=== PATIENT | female | born 1980 | race Caucasian/White ===

== ENCOUNTER → 2017-08-22 | Outpatient (CLI) | payer MEDICAID ==
--- NOTE | 2017-08-22 09:31 | Diagnostic Imaging Report ---
PROCEDURE: MRI left upper extremity without contrast. TECHNIQUE: Multiplanar, multisequence MR imaging of the left shoulder was performed without contrast. COMPARISON: None available. INDICATION: Left shoulder pain. Decreased range of motion. FINDINGS: Rotator cuff: No rotator cuff tear. Mild tendinopathy of the supraspinatus and subscapularis. No rotator cuff muscle atrophy or denervation edema. Glenoid labrum: By non-arthrogram imaging, the glenoid labrum appears intact. No para-labral cyst. Long head of biceps: Long head of biceps is normally positioned within the bicipital groove. The intracapsular segment is intact. Bones and cartilage: Humeral head is normal in morphology without fracture or focal osseous lesion. No glenohumeral chondromalacia. The acromioclavicular joint is normal in alignment without significant degenerative change. Soft tissues: No glenohumeral joint effusion. No MRI findings to suggest adhesive capsulitis. No fluid or inflammatory like signal within the subacromial/subdeltoid space to indicate bursitis. IMPRESSION: 1. No rotator cuff tear. Mild tendinopathy of the supraspinatus and subscapularis. 2. Long head of biceps is normal. 3. No displaced labral tear or paralabral cyst. Dictated by: Dictated on workstation # [id number]
== END ==
LOC: RAD 08:15
PROVIDERS: ATTEND Nurse Practitioner Family
DX: M67.814 Other specified disorders of tendon, left shoulder (principal)
CPT/HCPCS: 73221

== ENCOUNTER 2017-12-31 21:29 | Emergency (ER) | payer MEDICAID ==
[~2017-12-31] VITALS: Ht 175.3 cm; Wt 72.6 kg
--- OUTSIDE RECORDS SUMMARY | 2017-12-31 21:34 | XMS REPORT ---
Author Author MYA MORATAYA Organization [facility] Address [address] [place] [address] Care Team Providers Care Mentally Retarded Teacher Name Role Phone MYA MORATAYA Unavailable PROBLEMS Unknown Problems ALLERGIES Substance Reaction Event Type Date Status Penicillin V Potassium Unknown Drug Allergy Jun, Active ENCOUNTERS Encounter Location Date Diagnosis [facility] [address] [facility] [id number] [address] September, Strep pharyngitis J02.0 and Sore throat J02.9 [facility] [address] [id number], [place] [address] Jun, Seasonal allergic rhinitis, unspecified trigger J30.2 IMMUNIZATIONS Vaccine Route Administration Date Status DEXAMETHASONE 4MG/ML (PER 1 MG) IM Intramuscular Jul 08, 2017 Administered DEPO MEDROL 40 MG/ML IM Intramuscular Jul 08, 2017 Administered SOCIAL HISTORY Never Assessed REASON FOR VISIT cough, chest congestion. also has a headache. been sick for 2 weeks. rashaad , pt also requestiong something for her nerves. explained to pt that we can get her an establish care appt. pt verbalized understanding. PLAN OF CARE Activity Details Follow Up prn Reason: VITAL SIGNS Height 69 in 2017-07-08 Weight 164.0 lbs 2017-07-08 Temperature 98.5 degrees Fahrenheit 2017-07-08 Heart Rate 78 bpm 2017-07-08 Respiratory Rate 18 2017-07-08 BMI 24.22 kg/m2 2017-07-08 Blood pressure systolic 118 mmHg 2017-07-08 Blood pressure diastolic 68 mmHg 2017-07-08 MEDICATIONS Medication Instructions Dosage Frequency Start Date End Date Duration Status Ibuprofen 200 MG Orally Three times a day 1 tablet with food or milk as needed 8h Active Flonase 50 MCG/ACT Nasally Once a day 1 spray in each nostril 24h Jun, 30 day(s) Active Zyrtec Allergy 10 MG Orally Once a day 1 tablet 24h 23 Jun, 2017 Jul, 30 day(s) Active RESULTS No Results PROCEDURES Procedure Date Ordered Result Body Site DEPO MEDROL 40 MG/ML Jul 08, 2017 DEXAMETHASONE 4MG/ML (PER 1 MG) Jul 08, 2017 THER/PROPH/DIAG INJ, SC/IM Jul 08, 2017 INSTRUCTIONS MEDICATIONS ADMINISTERED No Known Medications
--- OUTSIDE RECORDS SUMMARY | 2017-12-31 21:34 | XMS REPORT ---
Author Author ARNOL BERNAL Organization [facility] Address [address] [place] [address] Care Team Providers Care Exhaust And Muffler Repairer Name Role Phone ARNOL BERNAL Unavailable PROBLEMS Unknown Problems ALLERGIES Substance Reaction Event Type Date Status Penicillin V Potassium Unknown Drug Allergy September, Active ENCOUNTERS Encounter Location Date Diagnosis [facility] [id number] [place] [id number] Dec, [facility] [id number] [place] [phone] September, Strep pharyngitis J02.0 and Sore throat J02.9 [facility] [id number] [place] [phone] Jun, Seasonal allergic rhinitis, unspecified trigger J30.2 IMMUNIZATIONS No Known Immunizations SOCIAL HISTORY Never Assessed REASON FOR VISIT sore throat, cough, bosy aches, fever. been sick for 5 days. sore throat started 2 days ago. kbullardrn, fever just started last noc...never actually took it.. and hasnt taken any tylenol et motrin PLAN OF CARE Activity Details Follow Up prn Reason: VITAL SIGNS Height 69 in 2017-09-26 Weight 171.8 lbs 2017-09-26 Temperature 98.0 degrees Fahrenheit 2017-09-26 Heart Rate 80 bpm 2017-09-26 Respiratory Rate 20 2017-09-26 BMI 25.37 kg/m2 2017-09-26 Blood pressure systolic 118 mmHg 2017-09-26 Blood pressure diastolic 70 mmHg 2017-09-26 MEDICATIONS Medication Instructions Dosage Frequency Start Date End Date Duration Status Flonase 50 MCG/ACT Nasally Once a day 1 spray in each nostril 24h Jun, 30 day(s) Active Clindamycin HCl 300 MG Orally every 6 hrs 1 capsule 6h September,September 10 days Active Ibuprofen 200 MG Orally Three times a day 1 tablet with food or milk as needed 8h Not-Taking Sudafed 30 MG Orally every 6 hrs 1 tablet as needed 6h Active RESULTS Name Result Date Reference Range STREP A (IN HOUSE) 2017-09-26 STREP A positive Control + Lot # [id number] Exp date 2019 10 10 PROCEDURES Procedure Date Ordered Result Body Site STREP A ASSAY W/OPTIC September 26, 2017 INSTRUCTIONS MEDICATIONS ADMINISTERED No Known Medications
[2017-12-31] MEDS ORDERED: KETOROLAC 30 MG/ML VIAL IVP STA (22:10)
[2017-12-31] MEDS ORDERED: diphenhydrAMINE 50 MG/ML INJ (BENADRYL) IV STA (22:10)
[2017-12-31] MEDS ORDERED: PROMETHAZINE INJ 25 MG/ML (PHENERGAN) AMP IVP STA (22:10)
[2017-12-31] MEDS ORDERED: NS IV 1000 ML 1,000 ML IV SCH (22:14)
--- NOTE | 2017-12-31 22:14 | ED Headache ---
General Chief Complaint: Head/Cervical Problems Stated Complaint: HEADACHE Nursing Triage Note: C/O HEADACHE STARTING 2 DAYS AGO BUT WORSE THIS EVENING (LAYING DOWN MAKES PAIN WORSE), SHARP STOMACH PAINS STARTING YESTERDAY WITH NAUSEA BUT NO VOMITING OR DIARRHEA. Nursing Sepsis Screen: No Definite Risk History of Present Illness Date Seen by Provider: Dec 31, 2017 Time Seen by Provider: 22:00 Initial Comments 37-year-old female presents for right occipital headache. She reports her symptoms have been present for approximately 2 days. She has tried Tylenol and ibuprofen with no relief. She usually is able to take Excedrin headache with improvement but it has not been effective. She's had no ibuprofen for the last 8 hours. Mild nausea and no vomiting. She has no photophobia or vision changes. She has not had a headache to this severity in the one year. She is currently living at [facility]. She sees Beatriz Salcedo APRN. Timing/Duration: 24 hours Severity/Quality: moderate Location: occipital Prior Headaches/Recent Trauma: occasional headaches Associated Symptoms: No confusion; fatigue; No facial pain, No fever/chills, No loss of consciousness; nausea/vomiting; No nasal congestion, No nasal drainage, No numbness in legs/feet, No rash, No seizures, No sinus infection, No stiff neck, No vision changes, No weakness Allergies and Home Medications Allergies Coded Allergies: No Known Drug Allergies (Unverified , 12/31/17) Patient Home Medication List Home Medication List Reviewed: Yes Review of Systems Constitutional: no symptoms reported, see HPI Gastrointestinal: see HPI; No constipation, No diarrhea, No loss of appetite; nausea; No vomiting Psychiatric/Neurological: See HPI, Headache All Other Systems Reviewed Negative Unless Noted: Yes Past Mczgaew-Cxlssj-Wlyixd Hx Past Med/Social Hx: Reviewed Nursing Past Med/Soc Hx Patient Social History Alcohol Use: Denies Use Recreational Drug Use: No Smoking Status: Current Everyday Smoker Recent Foreign Travel: No Contact w/Someone Who Travel: No Recent Infectious Disease Expo: No Recent Hopitalizations: No Seasonal Allergies Seasonal Allergies: Yes Past Medical History Surgeries: Yes Appendectomy, Section Respiratory: No Cardiac: No Neurological: Yes (HX MIGRAINE ONE YEAR AGO) Headaches /Migraines Last Menstrual Period: Dec 24, 2017 Sexually Transmitted Disease: No Genitourinary: No Gastrointestinal: Yes (MICROSCOPIC COLITIS) Musculoskeletal: No Endocrine: No HEENT: No Cancer: No Psychosocial: No Integumentary: Yes (ALOPECIA) Blood Disorders: No Physical Exam Vital Signs Vital Signs - First Documented 12/31/17 21:55 Temp 97.1 Pulse 81 Resp 17 B/P (MAP) 113/68 (83) O2 Delivery Room Air Capillary Refill : Less Than 3 Seconds Height, Weight, BMI Height: 5'9.00" Weight: 160lbs. oz. 72.995165it; BMI Method:Stated General Appearance: WD/WN, mild distress HEENT: PERRL/EOMI, normal ENT inspection, TMs normal, pharynx normal Neck: non-tender, full range of motion, supple, normal inspection Cardiovascular: normal peripheral pulses, regular rate, rhythm, no murmur Respiratory: chest non-tender, lungs clear, normal breath sounds Gastrointestinal: normal bowel sounds, non tender, soft Extremities: normal range of motion, non-tender, normal inspection, no calf tenderness, normal capillary refill Psychiatric: alert, oriented x 3 Crainal Nerves: normal hearing, normal speech, PERRL Coordination/Gait: normal finger to nose, normal gait, negative Romberg's sign Motor/Sensory: no motor deficit, no sensory deficit, no pronator drift Skin: normal color, warm/dry Lymphatic: no adenopathy Progress/Results/Core Measures Results/Orders My Orders Orders - JESSE MARTE Ketorolac Injection (Toradol Injection) (12/31/17 22:10) Promethazine Injection (Phenergan Injec (12/31/17 22:10) Diphenhydramine Injection (Benadryl Inje (12/31/17 22:10) Saline Lock/Iv-Start (12/31/17 22:14) Ns Iv 1000 Ml (Sodium Chloride 0.9%) (12/31/17 22:14) Ns (Ivpb) (Sodium Chloride 0.9% Ivpb Bag (12/31/17 22:18) Vital Signs/I&O 12/31/17 21:55 Temp 97.1 Pulse 81 Resp 17 B/P (MAP) 113/68 (83) O2 Delivery Room Air Blood Pressure Mean: 83 Progress Progress Note : Time: 22:00 Progress Note Initial evaluation completed, recommended IV fluids, normal saline 1 L. Toradol 30 mg IV, Phenergan 25 mg IV and Benadryl 25 mg IV. She reports having someone who can drive her home. Her son is with her at the present time but she will have someone come to get him. 2240 Patient reports symptoms have dulled since receiving medication. Feeling drowsy, room darkened and quiet for her to rest. Departure Impression Primary Impression: Migraine Qualified Codes: G43.019 - Migraine without aura, intractable, without status migrainosus Disposition: HOME, SELF-CARE Condition: Improved Departure-Patient Inst. Referrals: NO,LOCAL PHYSICIAN (PCP/Family) Primary Care Physician Patient Instructions: Migraine Headache (DC) Add. Discharge Instructions: Make sure to stay well hydrated, drinking one bottle of water every 2 hours while awake. Take Excedrin migraine at first onset of headache. If headaches persist, follow up with Beatriz Salcedo APRN for additional options on medication management. Return to emergency department for new, urgent health care needs. All discharge instructions reviewed with patient and/or family. Voiced understanding. Copy Copies To 1: BRANDIN CUI MD, AMY ARNP Dec 31, 2017 22:14
[2017-12-31] MEDS ORDERED: NS (IVPB) 0 ML ONE (22:18)
[2017-12-31 23:24] VITALS: BP 113/68
== END 2017-12-31 23:27 | disposition home or self-care (01) ==
LOC: EDUNIT# 21:29 → ER 21:30
DX: G43.909 Migraine, unspecified, not intractable, without status migrainosus (principal); F17.200 Nicotine dependence, unspecified, uncomplicated; Z90.49 Acquired absence of other specified parts of digestive tract; Z98.890 Other specified postprocedural states

== ENCOUNTER 2018-02-15 14:03 | Emergency (ER) | payer SELFPAY ==
[~2018-02-15] VITALS: Ht 175.3 cm; Wt 76.2 kg
--- OUTSIDE RECORDS SUMMARY | 2018-02-15 14:07 | XMS REPORT ---
Author Author PALMER BORREGO [facility] Address [address] [place] [address] Care Team Providers Care Supervisor Clam Bed Name Role Phone PALMER BORREGO Unavailable PROBLEMS Unknown Problems ALLERGIES No Information ENCOUNTERS Encounter Location Date Diagnosis [facility] [id number] [place] [phone] Dec, Dental examination Z01.20 [facility] [id number] [place] [phone] September, Strep pharyngitis J02.0 and Sore throat J02.9 [facility] [id number] [place] [phone] Jun, Seasonal allergic rhinitis, unspecified trigger J30.2 IMMUNIZATIONS No Known Immunizations SOCIAL HISTORY Never Assessed REASON FOR VISIT prophy PLAN OF CARE VITAL SIGNS MEDICATIONS Unknown Medications RESULTS No Results PROCEDURES Procedure Date Ordered Result Body Site Billing Notes on claim Jan 02, 2018 INSTRUCTIONS MEDICATIONS ADMINISTERED No Known Medications
[2018-02-15 14:59] LABS: BASOPHILS % (AUTO) 0 % (0-10); EOSINOPHILS # (AUTO) 0.2 10^3/uL (0.0-0.3); EOSINOPHILS % (AUTO) 4 % (0-10); HEMATOCRIT 35 % (35-52); HEMOGLOBIN 12.2 G/DL (11.5-16.0); LYMPHOCYTES # (AUTO) 1.4 X 10^3 (1.0-4.0); LYMPHOCYTES % (AUTO) 25 % (12-44); MEAN CORPUSCULAR HEMOGLOBIN 31 PG (25-34); MEAN CORPUSCULAR HGB CONC 35 G/DL (32-36); MEAN CORPUSCULAR VOLUME 90 FL (80-99); MEAN PLATELET VOLUME 10.7 FL (7.4-10.4); MONOCYTES # (AUTO) 0.5 X 10^3 (0.0-1.0); MONOCYTES % (AUTO) 9 % (0-12); NEUTROPHILS # (AUTO) 3.5 X 10^3 (1.8-7.8); NEUTROPHILS % (AUTO) 62 % (42-75); PLATELET COUNT 208 10^3/uL (130-400); RED BLOOD COUNT 3.89 10^6/uL (4.35-5.85); RED CELL DISTRIBUTION WIDTH 12.3 % (10.0-14.5); WHITE BLOOD COUNT 5.7 10^3/uL (4.3-11.0)
[2018-02-15] MEDS ORDERED: ONDANSETRON 4 MG/2 ML (SDV) Z0FRAN IVP ONE (15:00)
[2018-02-15] MEDS ORDERED: NS IV 1000 ML 1,000 ML IV SCH (15:00)
[2018-02-15 15:12] LABS: ALANINE AMINOTRANSFERASE 14 U/L (0-55); ALBUMIN 3.9 GM/DL (3.2-4.5); ALKALINE PHOSPHATASE 31 U/L (40-136); AMYLASE 45 U/L (25-125); BILIRUBIN,TOTAL 0.2 MG/DL (0.1-1.0); BUN/CREATININE RATIO 15; CALCIUM 8.6 MG/DL (8.5-10.1); CARBON DIOXIDE 21 MMOL/L (21-32); CHLORIDE 112 MMOL/L (98-107); CREATININE SERUM 0.68 MG/DL (0.60-1.30); GFR ESTIMATED > 60; GLUCOSE 101 MG/DL (70-105); LIPASE 17 U/L (8-78); POTASSIUM 3.8 MMOL/L (3.6-5.0); SODIUM 140 MMOL/L (135-145); TOTAL PROTEIN 6.7 GM/DL (6.4-8.2)
[2018-02-15] MEDS ORDERED: IOHEXOL 350 MG/ML 100 ML (OMNIPAQUE 350) VIAL IV ONE (15:45)
[2018-02-15] MEDS ORDERED: NS 250 ML (IVPB) BAG IV ONE (15:45)
--- NOTE | 2018-02-15 16:02 | ED Abdominal Pain ---
General Chief Complaint: Abdominal/GI Problems Stated Complaint: VOMITING Nursing Triage Note: ARRIVED VIA AMB WITHOUT DIFFICULTY. STATES SHE WAS SENT OVER FROM [facility] WITH LEFT ABD PAIN WITH N/V/D X4-5 DAYS. Sepsis Screen: No Definite Risk Source of Information: Patient Exam Limitations: No Limitations History of Present Illness Date Seen by Provider: Feb 15, 2018 Time Seen by Provider: 14:40 Initial Comments Patient is 37-year-old female who presents to the emergency room with complaints of left lower quadrant abdominal pain, nausea, vomiting, diarrhea for the past 4-5 days. She denies any recent fevers. Denies any urinary tract symptoms. Denies using anything navt-fld-ydjgwyt for treatment. Timing/Duration: 4-5 Days Severity/Quality: Moderate, Sharp Location: LLQ Radiation: No Radiation Associated Symptoms: Nausea/Vomiting Allergies and Home Medications Allergies Coded Allergies: No Known Drug Allergies (Unverified , 12/31/17) Home Medications Hydrocodone Bit/Acetaminophen 1 Tab Tab, 1 EACH PO Q4-6HR PRN for PAIN-MODERATE Prescribed by: KAYLEE MARTINEZ on 02/15/181647 Ondansetron 4 Mg Tab.rapdis, 4 MG SL Q4H PRN for NAUSEA/VOMITING-1ST LINE Prescribed by: KAYLEE MARTINEZ on 02/15/18 1648 Patient Home Medication List Home Medication List Reviewed: Yes Review of Systems Review of Systems Constitutional: see HPI; No chills, No fever, No malaise Gastrointestinal: See HPI, Abdominal Pain, Diarrhea, Nausea, Vomiting All Other Systems Reviewed Negative Unless Noted: Yes Past Jjbcfxf-Irrrjl-Pzomxm Hx Past Med/Social Hx: Reviewed Nursing Past Med/Soc Hx Patient Social History Recent Foreign Travel: No Contact w/Someone Who Travel: No Recent Infectious Disease Expo: No Recent Hopitalizations: No Seasonal Allergies Seasonal Allergies: Yes Past Medical History Surgeries: Yes Appendectomy, Section Respiratory: No Cardiac: No Neurological: Yes (HX MIGRAINE ONE YEAR AGO) Headaches /Migraines Last Menstrual Period: Jan 25, 2018 Sexually Transmitted Disease: No Genitourinary: No Gastrointestinal: Yes (MICROSCOPIC COLITIS) Musculoskeletal: No Endocrine: No HEENT: No Cancer: No Psychosocial: No Integumentary: Yes (ALOPECIA) Blood Disorders: No Family Medical History Reviewed Nursing Family Hx Physical Exam Vital Signs Vital Signs - First Documented 02/15/18 14:20 Temp 98.3 Pulse 81 Resp 16 B/P (MAP) 113/68 (83) Pulse Ox 96 O2 Delivery Room Air Capillary Refill : Less Than 3 Seconds Height/Weight/BMI Height: 5'9.00" Weight: 168lbs. oz. 76.913109uv; BMI Method:Stated General Appearance: WD/WN, no apparent distress Respiratory: chest non-tender, lungs clear, normal breath sounds, no respiratory distress, no accessory muscle use Cardiovascular: normal peripheral pulses, regular rate, rhythm, no edema, no gallop, no JVD, no murmur Gastrointestinal: normal bowel sounds, soft, no organomegaly, no pulsatile mass , tenderness (left lower quadrant tenderness.) Neurologic/Psychiatric: alert, normal mood/affect, oriented x 3 Skin: normal color, warm/dry Progress/Results/Core Measures Results/Orders Lab Results Laboratory Tests Test 02/15/18 14:30 02/15/18 16:50 Range/Units White Blood Count 5.7 4.3-11.0 10^3/uL Red Blood Count 3.89 L 4.35-5.85 10^6/uL Hemoglobin 12.2 11.5-16.0 G/DL Hematocrit 35 35-52 % Mean Corpuscular Volume 90 80-99 FL Mean Corpuscular Hemoglobin 31 25-34 PG Mean Corpuscular Hemoglobin Concent 35 32-36 G/DL Red Cell Distribution Width 12.3 10.0-14.5 % Platelet Count 208 130-400 10^3/uL Mean Platelet Volume 10.7 H 7.4-10.4 FL Neutrophils (%) (Auto) 62 42-75 % Lymphocytes (%) (Auto) 25 12-44 % Monocytes (%) (Auto) 9 0-12 % Eosinophils (%) (Auto) 4 0-10 % Basophils (%) (Auto) 0 0-10 % Neutrophils # (Auto) 3.5 1.8-7.8 X 10^3 Lymphocytes # (Auto) 1.4 1.0-4.0 X 10^3 Monocytes # (Auto) 0.5 0.0-1.0 X 10^3 Eosinophils # (Auto) 0.2 0.0-0.3 10^3/uL Basophils # (Auto) 0.0 0.0-0.1 10^3/uL Sodium Level 140 135-145 MMOL/L Potassium Level 3.8 3.6-5.0 MMOL/L Chloride Level 112 H 98-107 MMOL/L Carbon Dioxide Level 21 21-32 MMOL/L Anion Gap 7 5-14 MMOL/L Blood Urea Nitrogen 10 7-18 MG/DL Creatinine 0.68 0.60-1.30 MG/DL Estimat Glomerular Filtration Rate > 60 BUN/Creatinine Ratio 15 Glucose Level 101 70-105 MG/DL Calcium Level 8.6 8.5-10.1 MG/DL Corrected Calcium 8.7 8.5-10.1 MG/DL Total Bilirubin 0.2 0.1-1.0 MG/DL Aspartate Amino Transf (AST/SGOT) 14 5-34 U/L Alanine Aminotransferase (ALT/SGPT) 14 0-55 U/L Alkaline Phosphatase 31 L 40-136 U/L Total Protein 6.7 6.4-8.2 GM/DL Albumin 3.9 3.2-4.5 GM/DL Amylase Level 45 25-125 U/L Lipase 17 8-78 U/L Serum Test, Qualitative NEGATIVE NEGATIVE Urine Color YELLOW Urine Clarity CLEAR Urine pH 6.5 5-9 Urine Specific Arena 1.010 L 1.016-1.022 Urine Protein 1+ H NEGATIVE Urine Glucose (UA) NEGATIVE NEGATIVE Urine Ketones NEGATIVE NEGATIVE Urine Nitrite NEGATIVE NEGATIVE Urine Bilirubin NEGATIVE NEGATIVE Urine Urobilinogen NORMAL NORMAL MG/DL Urine Leukocyte Esterase NEGATIVE NEGATIVE Urine RBC (Auto) 2+ H NEGATIVE Urine RBC 0-2 /HPF Urine WBC 0-2 /HPF Urine Squamous Epithelial Cells 2-5 /HPF Urine Crystals NONE /LPF Urine Bacteria NEGATIVE /HPF Urine Casts NONE /LPF Urine Mucus NEGATIVE /LPF Urine Culture Indicated NO My Orders Orders - KAYLEE MARTINEZ Comprehensive Metabolic Panel (02/15/18 14:51) Lipase (02/15/18 14:51) Amylase (02/15/18 14:51) Ua Culture If Indicated (02/15/18 14:51) Hcg,Qualitative Serum (02/15/18 14:51) Saline Lock/Iv-Start (02/15/18 14:51) Cbc With Automated Diff (02/15/18 14:51) Ondansetron Injection (Zofran Injectio (02/15/18 15:00) Ns Iv 1000 Ml (Sodium Chloride 0.9%) (02/15/18 15:00) Ct Abdomen/Pelvis W (02/15/18 15:06) Iohexol Injection (Omnipaque 350 Mg/Ml 1 (02/15/18 15:45) Ns (Ivpb) (Sodium Chloride 0.9%) (02/15/18 15:45) Ketorolac Injection (Toradol Injection) (02/15/18 16:15) Medications Given in ED Vital Signs/I&O 02/15/18 02/15/18 14:20 17:36 Temp 98.3 Pulse 81 71 Resp 16 16 B/P (MAP) 113/68 (83) 104/68 Pulse Ox 96 98 O2 Delivery Room Air Room Air Blood Pressure Mean: 83 Progress Progress Note : Time: 16:17 Progress Note Patient's nausea has resolved. I have informed her of CT findings. She agrees with plans for discharge. Return precautions were given. Diagnostic Imaging Diagonstic Imaging: CT Plain Films/CT/US/NM/MRI: abdomen, pelvis Comments NAME: AARON SALAS [facility] REC#: [id number] PT STATUS: REG ER : 1980 PHYSICIAN: KAYLEE MARTINEZ ADMIT DATE: 02/15/18/ER Draft Date of Exam:02/15/18 CT ABDOMEN/PELVIS W PROCEDURE: CT abdomen and pelvis with contrast. TECHNIQUE: Multiple contiguous axial images were obtained through the abdomen and pelvis after administration of intravenous contrast. INDICATION: Nausea, vomiting and left lower quadrant pain. FINDINGS: There is a left adnexal cyst, presumed ovarian, measuring 3.9 x 2.3 cm, just deep to the left lower quadrant abdominal wall. The uterus and right adnexa appear unremarkable. The urinary bladder on the delayed images appear normal. There is some stool and fluid as well as a small amount of air throughout the lumen of the colon which may reflect a hypermobile or diarrheal state. No evidence for small or large bowel obstruction. There is no focal small or large bowel wall thickening and no perienteric or pericolonic edema. There is no inflammatory process. The unobstructed kidneys appear normal. The gallbladder, adrenals, pancreas and spleen are unremarkable. The liver and gallbladder are felt unremarkable. Heterogeneity of the livers density during the early arterial dynamic phase are felt owing to reflect incidental incomplete and inhomogenous perfusion. This is homogenous and normal on the delayed images and this is felt incidental. IMPRESSION: A left ovarian cyst shows no obvious complexity. Density dimensions above. The fluid and air throughout the length of the colon may reflect a hypermobile or diarrheal state. No evidence for small or large bowel obstruction and no focal inflammatory process. No mass or obstructive features. No acute appearing abnormality. Dictated on workstation # [id number] Dict: 02/15/18 1601 Trans: 02/15/18 1608 [facility] [id number] Interpreted by: ANNAMARIE MAURER Electronically signed by: Reviewed: Reviewed by Me Departure Impression Primary Impression: Nausea vomiting and diarrhea Additional Impression: Left ovarian cyst Disposition: HOME, SELF-CARE Condition: Stable/Unchanged Departure-Patient Inst. Decision time for Depature: 16:46 Referrals: NO,LOCAL PHYSICIAN (PCP) Primary Care Physician Patient Instructions: Diarrhea and Traveler's Diarrhea, Child (DC), LOCAL PHYSICIAN LIST, Nausea and Vomiting, Adult (DC) Add. Discharge Instructions: Take medications as directed. Drink plenty of clear liquids to stay hydrated like water. You may use bmim-txm-clinztb antidiarrheals as directed by the bottle. Follow-up with your primary care provider within 1 week for recheck. Return back to the emergency room for any worsening symptoms or concerns as needed. All discharge instructions reviewed with patient and/or family. Voiced understanding. Scripts Ondansetron (Zofran Odt) 4 Mg Tab.rapdis 4 MG SL Q4H PRN for NAUSEA/VOMITING-1ST LINE, #14 TAB Prov: KAYLEE MARTINEZ 02/15/18 Hydrocodone Bit/Acetaminophen (Hydrocodone/Acetaminophen 5/325mg Tablet) 1 Tab Tab 1 EACH PO Q4-6HR PRN for PAIN-MODERATE MDD 10, #14 TAB Prov: KAYLEE MARTINEZ 02/15/18 KAYLEE MARTINEZ Feb 15, 2018 16:02
--- NOTE | 2018-02-15 16:09 | Diagnostic Imaging Report ---
PROCEDURE: CT abdomen and pelvis with contrast. TECHNIQUE: Multiple contiguous axial images were obtained through the abdomen and pelvis after administration of intravenous contrast. INDICATION: Nausea, vomiting and left lower quadrant pain. FINDINGS: There is a left adnexal cyst, presumed ovarian, measuring 3.9 x 2.3 cm, just deep to the left lower quadrant abdominal wall. The uterus and right adnexa appear unremarkable. The urinary bladder on the delayed images appear normal. There is some stool and fluid as well as a small amount of air throughout the lumen of the colon which may reflect a hypermobile or diarrheal state. No evidence for small or large bowel obstruction. There is no focal small or large bowel wall thickening and no perienteric or pericolonic edema. There is no inflammatory process. The unobstructed kidneys appear normal. The gallbladder, adrenals, pancreas and spleen are unremarkable. The liver and gallbladder are felt unremarkable. Heterogeneity of the livers density during the early arterial dynamic phase are felt owing to reflect incidental incomplete and inhomogenous perfusion. This is homogenous and normal on the delayed images and this is felt incidental. IMPRESSION: A left ovarian cyst shows no obvious complexity. Density dimensions above. The fluid and air throughout the length of the colon may reflect a hypermobile or diarrheal state. No evidence for small or large bowel obstruction and no focal inflammatory process. No mass or obstructive features. No acute appearing abnormality. Dictated by: Dictated on workstation # [id number]
[2018-02-15] MEDS ORDERED: KETOROLAC 30 MG/ML VIAL IVP ONE (16:15)
[2018-02-15] MEDS ORDERED: ACHD5005 PO (16:48)
[2018-02-15] MEDS ORDERED: ONDA4TAB8 SL (16:48)
[2018-02-15 17:04] LABS: BILIRUBIN,URINE NEGATIVE (NEGATIVE); CLARITY,URINE CLEAR; COLOR,URINE YELLOW; GLUCOSE, URINE (UA) NEGATIVE (NEGATIVE); KETONES,URINE NEGATIVE (NEGATIVE); LEUKOCYTE ESTERASE ,URINE NEGATIVE (NEGATIVE); NITRITE,URINE NEGATIVE (NEGATIVE); PH,URINE 6.5 (5-9); PROTEIN,URINE 1+ (NEGATIVE); UROBILINOGEN,URINE NORMAL (NORMAL)
[2018-02-15 17:21] LABS: BACTERIA,URINE NEGATIVE /HPF; RBC,URINE 0-2 /HPF; WBC,URINE 0-2 /HPF
[2018-02-15 17:36] VITALS: BP 104/68
== END 2018-02-15 17:36 | disposition home or self-care (01) ==
LOC: EDUNIT# 14:03 → ER 14:04
DX: N83.202 Unspecified ovarian cyst, left side (principal); R19.7 Diarrhea, unspecified; G43.909 Migraine, unspecified, not intractable, without status migrainosus; Z87.19 Personal history of other diseases of the digestive system; Z90.89 Acquired absence of other organs; Z98.890 Other specified postprocedural states
CPT/HCPCS: 36415; 74177; 80053; 81000; 82150; 83690; 84703; 85025

== ENCOUNTER 2018-03-12 18:22 | Emergency (ER) | payer MEDICAID, OTHER ==
[~2018-03-12] VITALS: Ht 175.3 cm; Wt 77.1 kg
[~2018-03-12 18:22] MED LIST: ACHD5005 PO; ONDA4TAB8 SL
[2018-03-12] MEDS ORDERED: fluCOnazole (DIFLUCAN) 100 MG TAB PO ONE (19:00)
[2018-03-12] MEDS ORDERED: metroNIDAZOLE 500 MG (FLAGYL) TAB PO ONE (19:00)
[2018-03-12] MEDS ORDERED: MICO1KIT13 VG (19:02)
[2018-03-12] MEDS ORDERED: FLUC200T PO (19:02)
--- NOTE | 2018-03-12 19:02 | ED GU-Female ---
General Chief Complaint: -Female Stated Complaint: YEAST INFECTION Nursing Triage Note: PATIENT STATES THAT SHE HAS HAD A YEAST INFECTION X1 WEEK. C/O ITCHING AND BURNING. STATES HER SKIN IS RAW. Nursing Sepsis Screen: No Definite Risk Source: patient History of Present Illness Date Seen by Provider: Mar 12, 2018 Time Seen by Provider: 18:32 Initial Comments PT ARRIVES VIA POV FROM HOME C/O PAIN, ITCHING, BURNING AND SORES TO GENITAL AREA X 1 WEEK STATES SHE THINKS SHE HAS HAD A YEAST INFECTION HAS HAD A VAGINAL DISCHARGE WELL HAS NOT TRIED ANY OVER THE COUNTER MEDICATIONS HAS BURNING ON URINATION, BUT IS MOSTLY EXTERNAL NO ABDOMINAL PAIN NO FEVER STATES SHE HAS ALWAYS HAD PERIANAL RASH/IRRITATION/AND OCCASIONALLY "RAW" SKIN IN THE AREA, AND USUALLY USES A STEROID CREAM FOR THAT, BUT HAS NOT USED IT RECENTLY NO RECENT ANTIBIOTIC OR ORAL STEROID USE. HAS VAGINAL/EXTERNAL GENITAL PAIN WITH INTERCOURSE LMP --SPOTTING THE LAST WEEK PCP: TERESO GARCIA AT [facility] Allergies and Home Medications Allergies Coded Allergies: No Known Drug Allergies (Unverified , 12/31/17) Home Medications Fluconazole 200 Mg Tablet, 200 MG PO DAILY Prescribed by: JAZZMINE BEAL on 03/12/181901 Hydrocodone Bit/Acetaminophen 1 Tab Tab, 1 EACH PO Q4-6HR PRN for PAIN-MODERATE Prescribed by: KYALEE MARTINEZ on 02/15/181647 Miconazole/Skin Cleanser No.17 1 Each Kit, 1 EACH VG UD Prescribed by: JAZZMINE BEAL on 03/12/181901 Ondansetron 4 Mg Tab.rapdis, 4 MG SL Q4H PRN for NAUSEA/VOMITING-1ST LINE Prescribed by: KAYLEE MARTINEZ on 02/15/181647 Patient Home Medication List Home Medication List Reviewed: Yes Review of Systems Review of Systems Constitutional: no symptoms reported Gastrointestinal: no symptoms reported Genitourinary: see HPI : No LMP: Mar 09, 2018 Musculoskeletal: no symptoms reported Skin: see HPI Endocrine: No Symptoms Reported Past Fctfujk-Pxirll-Hchacx Hx Patient Social History Alcohol Use: Denies Use Recreational Drug Use: No Smoking Status: Current Everyday Smoker Type Used: Cigarettes 2nd Hand Smoke Exposure: Yes Recent Foreign Travel: No Contact w/Someone Who Travel: No Recent Infectious Disease Expo: No Recent Hopitalizations: No Physical Abuse: No Sexual Abuse: No Seasonal Allergies Seasonal Allergies: Yes Past Medical History Surgeries: Yes Appendectomy, Section Respiratory: No Cardiac: No Neurological: Yes (HX MIGRAINE ONE YEAR AGO) Headaches /Migraines : No Female Reproductive Disorders: Denies Sexually Transmitted Disease: No Genitourinary: No Gastrointestinal: Yes (MICROSCOPIC COLITIS) Musculoskeletal: No Endocrine: No HEENT: No Cancer: No Psychosocial: No Integumentary: Yes (ALOPECIA; PERIANAL DERMATITIS) Blood Disorders: No Physical Exam Vital Signs Vital Signs - First Documented 03/12/18 18:25 Temp 98.1 Pulse 96 Resp 20 B/P (MAP) 121/76 (91) Pulse Ox 98 Capillary Refill : Less Than 3 Seconds Height, Weight, BMI Height: 5'9.00" Weight: 170lbs. 0oz. 77.387740ai; BMI Method:Stated General Appearance: WD/WN, no apparent distress, other (WEARING A WIG) Respiratory: normal breath sounds Gastrointestinal: non tender, soft Genital/Rectal: other (EXTERNAL GENITAL AREA WITH MILD ERYTHEMA, SOME SLIGHTLY DENUDED AREAS, BUT NO BLANCA ULCERS. PERIANAL WITH ACUTE AND CHRONIC INFLAMMATORY SKIN CHANGES WITH A FEW AREAS OF DENUDED SKIN WITHOUT BLANCA ULCERATIONS. NO OTHER LESIONS. ) Pelvic: normal adnexa, no cerv. motion tender, no masses, discharge (MODERATE AMOUNT OF THICK, WHITE ADHERENT DISCHARGE, VAGINAL MUCOSA MILDY INFLAMED. ); No tender w/ cervical motion, No tender adnexa, No tender uterus, No vaginal bleeding Extremities: normal inspection Neurologic/Psychiatric: colors custodian II-XII nml as tested, no motor/sensory deficits, alert, normal mood/affect, oriented x 3 Skin: normal color, warm/dry Progress/Results/Core Measures Suspected Sepsis Recent Fever Within 48 Hours: No Infection Criteria Present: None New/Unexplained Altered Menta: No Sepsis Screen: No Definite Risk SIRS Temperature:98.1 Pulse: 96 Respiratory Rate: 20 Blood Pressure 121 /76 Mean: 91 Results/Orders Lab Results Laboratory Tests Test 03/12/18 18:50 03/12/18 19:25 Range/Units Urine Color YELLOW Urine Clarity CLEAR Urine pH 5 5-9 Urine Specific Hamler 1.020 1.016-1.022 Urine Protein NEGATIVE NEGATIVE Urine Glucose (UA) NEGATIVE NEGATIVE Urine Ketones NEGATIVE NEGATIVE Urine Nitrite NEGATIVE NEGATIVE Urine Bilirubin NEGATIVE NEGATIVE Urine Urobilinogen NORMAL NORMAL MG/DL Urine Leukocyte Esterase NEGATIVE NEGATIVE Urine RBC (Auto) 4+ H NEGATIVE Urine RBC 10-25 H /HPF Urine WBC 2-5 /HPF Urine Squamous Epithelial Cells RARE /HPF Urine Crystals NONE /LPF Urine Bacteria TRACE /HPF Urine Casts NONE /LPF Urine Mucus TRACE /LPF Urine Culture Indicated NO My Orders Orders - EMIGDIOJAZZMINE Adelina DO Ua Culture If Indicated (03/12/18 18:53) Neisseria Gonorrhea Swab (03/12/18 18:53) Chlam Dna Probe (03/12/18 18:53) Genital Culture (03/12/18 18:53) Wet Prep (03/12/18 18:53) María Elena Prep (03/12/18 18:53) Urine Bedside (03/12/18 18:53) Herpes Simplex Culture (03/12/18 18:53) Fluconazole Tablet (Diflucan Tablet) (03/12/18 19:00) Metronidazole Tablet (Flagyl Tablet) (03/12/18 19:00) Lidocaine 2% Viscous 15 Ml (Xylocaine Vi (03/12/18 20:00) Medications Given in ED Current Medications Medications Dose Ordered Sig/Francesca Route Start Time Stop Time Status Last Admin Dose Admin Fluconazole 200 mg ONCE ONCE PO 03/12/18 19:00 03/12/18 19:01 DC 03/12/18 19:14 200 MG Metronidazole 2,000 mg ONCE ONCE PO 03/12/18 19:00 03/12/18 19:01 DC 03/12/18 19:14 2,000 MG Vital Signs/I&O 03/12/18 18:25 Temp 98.1 Pulse 96 Resp 20 B/P (MAP) 121/76 (91) Pulse Ox 98 Capillary Refill : Less Than 3 Seconds Blood Pressure Mean: 91 Departure Impression Primary Impression: Vaginitis Disposition: HOME, SELF-CARE Condition: Stable Departure-Patient Inst. Referrals: NO,LOCAL PHYSICIAN (PCP/Family) Primary Care Physician Patient Instructions: Bacterial Vaginosis (DC), Vaginal Yeast Infection (DC), Vaginitis Add. Discharge Instructions: NO INTERCOURSE UNTIL YOU ARE RECHECKED AND CLEARED TYLENOL AND MOTRIN NEEDED FOR PAIN FOLLOW UP WITH YOUR DR IN 1 WEEK FOR RECHECK All discharge instructions reviewed with patient and/or family. Voiced understanding. Scripts Miconazole/Skin Cleanser No.17 (Monistat 7 Combination Pack) 1 Each Kit 1 EACH VG UD, #1 KIT Prov: JAZZMINE BEAL DO 03/12/18 Fluconazole (Diflucan) 200 Mg Tablet 200 MG PO DAILY for FOR YEAST INFECTION, #10 TAB Prov: JAZZMINE BEAL DO 03/12/18 JAZZMINE BEAL DO Mar 12, 2018 19:02
[2018-03-12 19:33] LABS: BILIRUBIN,URINE NEGATIVE (NEGATIVE); CLARITY,URINE CLEAR; COLOR,URINE YELLOW; GLUCOSE, URINE (UA) NEGATIVE (NEGATIVE); KETONES,URINE NEGATIVE (NEGATIVE); LEUKOCYTE ESTERASE ,URINE NEGATIVE (NEGATIVE); NITRITE,URINE NEGATIVE (NEGATIVE); PH,URINE 5 (5-9); PROTEIN,URINE NEGATIVE (NEGATIVE); UROBILINOGEN,URINE NORMAL (NORMAL)
[2018-03-12 19:44] LABS: BACTERIA,URINE TRACE /HPF; SQUAMOUS EPITHELIAL CELL,UR RARE /HPF
[2018-03-12 20:00] VITALS: BP 120/74
[2018-03-12] MEDS ORDERED: LIDOCAINE 2% VISCOUS 15 ML UDC MM ONE (20:00)
== END 2018-03-12 19:58 | disposition home or self-care (01) ==
LOC: EDUNIT# 18:22 → ER 18:23
DX: N76.0 Acute vaginitis (principal); G43.909 Migraine, unspecified, not intractable, without status migrainosus; F17.210 Nicotine dependence, cigarettes, uncomplicated; Z90.49 Acquired absence of other specified parts of digestive tract
CPT/HCPCS: 36415; 81000; 84703; 87070; 87205; 87210; 87220; 87254; 87491; 87591; 99284

== ENCOUNTER 2018-05-13 19:17 | Emergency (ER) | payer MEDICAID ==
[~2018-05-13] VITALS: Ht 175.3 cm; Wt 72.6 kg
[~2018-05-13 19:17] MED LIST changes: +FLUC200T PO; +MICO1KIT13 VG
[2018-05-13] MEDS ORDERED: LEVO1TAB9 (19:33)
--- NOTE | 2018-05-13 20:11 | ED Neck-Back Pain/Injury ---
General Chief Complaint: Facial Problems Stated Complaint: HEADACHE,LUMP ON FACE Nursing Triage Note: right sided facial pain/headache x3 days. denies injury Nursing Sepsis Screen: No Definite Risk Source of Information: Patient Exam Limitations: No Limitations History of Present Illness Date Seen by Provider: May 13, 2018 Time Seen by Provider: 20:08 Initial Comments To ER with reports of right-sided facial pain just anterior to the right temporomandibular joint. This is been present for 3 days. No known injury. She states that she has a lot of popping and clicking in her jaw Location: Other Timing/Duration: 2-3 Days Severity: Mild Pain/Injury Location: Face Associated Symptoms: denies symptoms Allergies and Home Medications Allergies Coded Allergies: No Known Drug Allergies (Unverified , 12/31/17) Patient Home Medication List Home Medication List Reviewed: Yes Review of Systems Constitutional: see HPI EENTM: see HPI Respiratory: no symptoms reported Cardiovascular: no symptoms reported Genitourinary: no symptoms reported Musculoskeletal: no symptoms reported Skin: no symptoms reported Psychiatric/Neurological: No Symptoms Reported (O) Past Swncxab-Nhsmlb-Gpdtgl Hx Patient Social History Alcohol Use: Denies Use Recreational Drug Use: No Smoking Status: Current Everyday Smoker Type Used: Cigarettes 2nd Hand Smoke Exposure: Yes Recent Foreign Travel: No Contact w/Someone Who Travel: No Recent Infectious Disease Expo: No Recent Hopitalizations: No Seasonal Allergies Seasonal Allergies: Yes Past Medical History Surgeries: Yes Appendectomy, Section Respiratory: No Cardiac: No Neurological: Yes Headaches /Migraines : No Female Reproductive Disorders: Denies Sexually Transmitted Disease: No Genitourinary: No Gastrointestinal: No Musculoskeletal: No Endocrine: No HEENT: No Cancer: No Psychosocial: No Integumentary: Yes (ALOPECIA; PERIANAL DERMATITIS) Blood Disorders: No Physical Exam Vital Signs Vital Signs - First Documented 05/13/18 19:28 Temp 98.9 Pulse 70 Resp 18 B/P (MAP) 107/76 (86) Pulse Ox 100 O2 Delivery Room Air Capillary Refill : Less Than 3 Seconds Height, Weight, BMI Height: 5'9.00" Weight: 160lbs. 0oz. 72.864251co; BMI Method:Stated General Appearance: No Apparent Distress, WD/WN HEENT: PERRL/EOMI, TMs Normal, Normal ENT Inspection, Other (tenderness to palpation just anterior to the temporomandibular joint) Neck: Full Range of Motion, Normal Inspection Respiratory: No Accessory Muscle Use, No Respiratory Distress Gastrointestinal: Non Tender, Soft Neurologic/Psychiatric: Alert, Oriented x3, No Motor/Sensory Deficits Skin: Normal Color, Warm/Dry Progress/Results/Core Measures Results/Orders Vital Signs/I&O 05/13/18 19:28 Temp 98.9 Pulse 70 Resp 18 B/P (MAP) 107/76 (86) Pulse Ox 100 O2 Delivery Room Air Blood Pressure Mean: 86 Departure Impression Primary Impression: TMJ syndrome Disposition: 01 HOME, SELF-CARE Condition: Stable Departure-Patient Inst. Decision time for Depature: 20:10 Referrals: NO,LOCAL PHYSICIAN (PCP/Family) Primary Care Physician Patient Instructions: Temporomandibular Joint (TMJ) Disorders Add. Discharge Instructions: All discharge instructions reviewed with patient and/or family. Voiced understanding. GALDINO LARA APRN May 13, 2018 20:10
[2018-05-13] MEDS ORDERED: KETOROLAC 60 MG/2 ML VIAL IM ONE (20:15)
[2018-05-13] MEDS ORDERED: DEXAMETHASONE 10 MG/ML (DECADRON) 1 ML VIAL IM ONE (20:15)
[2018-05-13 20:18] VITALS: BP 107/76
== END 2018-05-13 20:17 | disposition home or self-care (01) ==
LOC: EDUNIT# 19:17 → ER 19:19
DX: M26.69 Other specified disorders of temporomandibular joint (principal); G43.909 Migraine, unspecified, not intractable, without status migrainosus; F17.210 Nicotine dependence, cigarettes, uncomplicated; Z90.49 Acquired absence of other specified parts of digestive tract; Z98.890 Other specified postprocedural states
CPT/HCPCS: 96372; 99284

== ENCOUNTER 2018-08-01 23:44 | Emergency (ER) | payer MEDICAID ==
[~2018-08-01 23:44] MED LIST changes: +LEVO1TAB9
== END 2018-08-02 01:05 | disposition left against medical advice (07) ==
LOC: EDUNIT# 23:44 → ER 23:46
DX: G43.909 Migraine, unspecified, not intractable, without status migrainosus (principal)

== ENCOUNTER → 2018-11-24 | Outpatient (CLI) | payer MEDICAID ==
--- NOTE | 2018-11-24 12:17 | Diagnostic Imaging Report ---
PROCEDURE: US Non-ob pelvis comp/trans. TECHNIQUE: Multiple realtime grayscale images were obtained of the pelvis in various projections endovaginally. Transabdominal imaging was also performed. INDICATION: Acute pelvic pain. FINDINGS: The uterus measures 6.9 x 4.6 x 3.4 cm. Endometrium is 3 mm in thickness. No myometrial mass is detected. Right ovary measures 2.3 x 2.0 x 1.5 cm. Left ovary was not visualized due to bowel gas. Right ovary does demonstrate blood flow. No adnexal mass or free fluid is seen. IMPRESSION: Nonvisualized left ovary. The study is otherwise unremarkable. Dictated by: Dictated on workstation # [id number]
== END ==
LOC: RAD 11:06
PROVIDERS: ATTEND Obstetrics & Gynecology
DX: N94.10 Unspecified dyspareunia (principal); R10.2 Pelvic and perineal pain
CPT/HCPCS: 76830; 76856

== ENCOUNTER 2018-12-18 12:45 | Outpatient (CLI) | payer MEDICAID ==
[~2018-12-18] VITALS: Ht 175.3 cm; Wt 72.6 kg
== END 2018-12-18 13:12 | disposition home or self-care (01) ==
LOC: PREOP 12:45
PROVIDERS: ATTEND Obstetrics & Gynecology
DX: Z01.818 Encounter for other preprocedural examination (principal)

== ENCOUNTER 2018-12-21 08:45 | Day surgery (SDC) | payer MEDICAID ==
[~2018-12-21] VITALS: Ht 175.3 cm; Wt 72.6 kg
[2018-12-21] VITALS (14 sets, daily range): BP systolic 84–106; BP diastolic 42–68
[2018-12-21] MEDS ORDERED: ceFAZolin INJECTION 1,000 MG in WATER (STERILE) FOR INJECTION 10 ML IV ONE (09:00)
[2018-12-21] MEDS: LACTATED RINGERS 1,000 ML IV PRN ×2 (09:15→11:24)
[2018-12-21] MEDS ORDERED: CATHETER FLUSH 10 ML SYR IV PRN (09:15)
--- NOTE | 2018-12-21 09:40 | Progress Note-Pre Operative ---
Pre-Operative Progress Note H&P Reviewed The H&P was reviewed, patient examined and no changes noted. Date Seen by Provider: Dec 21, 2018 Time Seen by Provider: 09:30 Date H&P Reviewed: Dec 21, 2018 Time H&P Reviewed: 09:30 Pre-Operative Diagnosis: CPP, Dyspareunia KEENA FRANCIS DO Dec 21, 2018 09:40
[2018-12-21] MEDS ORDERED: D5 LR IV SOLUTION 1,000 ML IV SCH (09:41)
[2018-12-21 09:43] LABS: BASOPHILS % (AUTO) 1 % (0-10); EOSINOPHILS # (AUTO) 0.3 10^3/uL (0.0-0.3); EOSINOPHILS % (AUTO) 5 % (0-10); HEMATOCRIT 39 % (35-52); HEMOGLOBIN 13.5 G/DL (11.5-16.0); LYMPHOCYTES # (AUTO) 1.5 X 10^3 (1.0-4.0); LYMPHOCYTES % (AUTO) 32 % (12-44); MEAN CORPUSCULAR HEMOGLOBIN 31 PG (25-34); MEAN CORPUSCULAR HGB CONC 34 G/DL (32-36); MEAN CORPUSCULAR VOLUME 90 FL (80-99); MEAN PLATELET VOLUME 11.5 FL (7.4-10.4); MONOCYTES # (AUTO) 0.4 X 10^3 (0.0-1.0); MONOCYTES % (AUTO) 8 % (0-12); NEUTROPHILS # (AUTO) 2.5 X 10^3 (1.8-7.8); NEUTROPHILS % (AUTO) 54 % (42-75); PLATELET COUNT 180 10^3/uL (130-400); RED CELL DISTRIBUTION WIDTH 12.6 % (10.0-14.5); WHITE BLOOD COUNT 4.7 10^3/uL (4.3-11.0)
--- NOTE | 2018-12-21 09:44 | Discharge Inst-Women's Service ---
Discharge Inst-Women's Serv Depart Medication/Instructions New, Converted or Re-Newed RX: RX on Chart Problems Reviewed?: Yes Consults/Follow Up Additional Follow Up: Yes Orders/Referrals Dr. Hunter in 2-3 weeks Activity Activity: Activity as Tolerated Driving Instructions: No Driving for 1 Week NO SMOKING: NO SMOKING Nothing Inside Vagina: No Douching, No [place], No Tampons Diet Discharge Diet: No Restrictions Symptoms to Report to : Bleeding Excessive, Pain Increased, Fever Over 101 Degrees F, Vaginal Bleeding Increase, Questions/Concerns For Any Problems or Questions: Contact Your Physician Skin/Wound Care Infection Signs and Symptoms: Foul Odor of Wound, Increased Drainage, Skin Itchy or Has a Rash, Increased Swelling, Temperature Above 101 F Operative Area Clean and Dry: Keep Incision Clean/Dry Stitches/[place]/Dermabond: Dermabond, Care of Stitches Bathing Instructions: KEENA Nguyen DO Dec 21, 2018 09:44
[2018-12-21] MEDS ORDERED: IBUP-1773 PO (09:45)
[2018-12-21] MEDS ORDERED: HYDROcodone/APAP 5 MG/325 MG (LORTAB) TAB PO PRN (09:45)
[2018-12-21] MEDS ORDERED: ONDANSETRON 4 MG/2 ML (SDV) Z0FRAN IVP PRN ×2 (09:45→12:00)
[2018-12-21] MEDS ORDERED: KETOROLAC 30 MG/ML VIAL IVP ONE (09:45)
[2018-12-21] MEDS ORDERED: BUPIVACAINE 0.25% 30 ML (SENSORCAINE) VIAL ONE (09:45)
[2018-12-21] MEDS ORDERED: ACHD5005 PO (09:45)
[2018-12-21] MEDS ORDERED: MIDAZOLAM 2 MG/2 ML (VERSED) VIAL ONE (09:55)
[2018-12-21] MEDS ORDERED: ONDANSETRON 4 MG/2 ML (SDV) Z0FRAN ONE (09:55)
[2018-12-21] MEDS ORDERED: LIDOCAINE PF 2% 5 ML (XYLOCAINE) VIAL ONE (09:55)
[2018-12-21] MEDS ORDERED: SEVOFLURANE (ULTANE) 15 ML INHAL SOLN ONE (09:55)
[2018-12-21] MEDS ORDERED: DEXAMETHASONE 10 MG/ML (DECADRON) 1 ML VIAL ONE (09:55)
[2018-12-21] MEDS ORDERED: ROCURONIUM 10 MG/ML 5 ML SYRINGE IV ONE (09:55)
[2018-12-21] MEDS ORDERED: proPOfol 200 MG/20 ML (DIPRIVAN) VIAL IV ONE (09:55)
[2018-12-21] MEDS ORDERED: fentaNYL INJECTION 100 MCG/2 ML AMP ONE ×2 (09:55→11:01)
[2018-12-21] MEDS ORDERED: GLYCOPYRROLATE 0.2 MG/ML (ROBINUL) 2 ML VIAL ONE (11:18)
[2018-12-21] MEDS ORDERED: NEOSTIGMINE 3 MG/3 ML VIAL ONE (11:18)
[2018-12-21] MEDS ORDERED: HYDROmorphone 2 MG/ML VIAL (DILAUDID) IV ONE (12:00)
[2018-12-21] MEDS ORDERED: morphine INJ 10 MG/ML 1ML (SYR OR VIAL) IVP ONE (12:00)
[2018-12-21] MEDS ORDERED: KETOROLAC 30 MG/ML VIAL ONE (12:12)
--- NOTE | 2018-12-21 12:43 | Anesthesia-General Post-Op ---
General Patient Condition Mental Status/LOC: Same as Preop Cardiovascular: Satisfactory Nausea/Vomiting: Absent Respiratory: Satisfactory Pain: Controlled Complications: Absent Post Op Complications Complications None Follow Up Care/Instructions Patient Instructions None needed. Anesthesia/Patient Condition Patient Condition Patient is doing well, no complaints, stable vital signs, no apparent adverse anesthesia problems. No complications reported per nursing. [place] [facility] [place]: Yes AKIRA LEIJA CRNA Dec 21, 2018 12:43
--- NOTE | 2018-12-21 22:50 | OPERATIVE REPORT ---
DATE OF SERVICE: PREOPERATIVE DIAGNOSIS: A 38-year-old female with chronic pelvic pain. POSTOPERATIVE DIAGNOSIS: A 38-year-old female with chronic pelvic pain. PROCEDURE: Exam under anesthesia with diagnostic laparoscopy, laparoscopic lysis of adhesions. SURGEON: Keena Francis DO ANESTHESIA: General endotracheal. ESTIMATED BLOOD LOSS: Minimal. URINE OUTPUT: 50 mL, clear at the end of the procedure. FLUIDS: 1200 mL lactated Ringer's solution. FINDINGS: A grossly normal external female genitalia, cervix and vagina. There is a fixed palpation of the uterus in the anteflexed position. I could not get the uterus to move backwards on bimanual exam. There are diffuse curtain adhesions of the omentum to the anterior abdominal wall as well as filmy adhesions of the bilateral fallopian tubes, dense adhesions of the vesicouterine peritoneum. SPECIMENS SENT: None. INDICATIONS FOR PROCEDURE: This 38-year-old female is a patient that has been coming to my office for the past 6 months with recurrent complaint of chronic pelvic pain as well as dyspareunia, has come to the point where she cannot have sex due to the discomfort is causing. I discussed with the patient performing exam and she is unable to tolerate exam in the office. Due to this, I discussed with the patient and do an exam under anesthesia while at the same time performing a diagnostic laparoscopy for ongoing pelvic pain. Risks of the procedure were discussed with the patient in detail including risk of bleeding, infection, damage to surrounding structures including but not limited to bowel, bladder, ureter, kidneys, need for recovery time from the surgery. We discussed possible postoperative complications and need for reoperation, risk from anesthesia and even . After everything had been discussed with the patient in detail, consent was obtained in the preoperative area and the patient was taken to the operating room. OPERATIVE REPORT IN DETAIL: Once in the operating room, anesthesia was found to be adequate, placed in dorsal lithotomy position, prepped and draped in normal sterile fashion. A Rudolph catheter was placed using sterile technique after a timeout was performed. A weighted speculum was inserted in the patient's vagina. Right angle retractor was used to visualize the cervix, which was grasped at 12 o'clock position using a long Allis clamp. I then gently sound the uterine cavity, depth was found to be 7 cm. I then placed a KrDreamLineser uterine manipulator a depth of 7 cm and deployed the balloon without difficulty. I then removed all the other instruments from the patient's vagina. Performed a change of gloves obtained my attention to the abdomen where infraumbilically I infiltrated this area using 0.25% Marcaine. I make a 5 mm incision with a knife and directed the Veress needle through the incision until intraperitoneal placement was confirmed using saline drop test. An opening pressure of 2 mmHg was noted. I proceeded to maximum pressure of 15 mmHg, at which point I removed the Veress needle and introduced a 5 mm blunt trocar. Once this was in place, I am able to confirm intraperitoneal placement using the laparoscope. There are significant amount of adhesions on the anterior abdominal wall; however, I am able to find a window through them and located to the left lower quadrant abdominal wall, at which point I place a trocar through this abdominal wall as well in similar fashion. I also placed a suprapubic trocar for retraction and for taking down these adhesions. I then take down the anterior abdominal wall, omental adhesions using monopolar EndoShears. A small amount of bleeding was encountered in doing this, but not very much. I then took my attention to the pelvis where the patient was placed in steep Trendelenburg and I am able to visualize all my findings as listed above. I take down the filmy adhesions. There are some very dense adhesions of the vesicouterine peritoneum, which I slowly taken down with both blunt and sharp dissection, after which there was no active bleeding noted from any of my dissection planes. I copiously irrigated the pelvis using normal saline once more and then began by removing the suprapubic trocar site under direct visualization of laparoscope. The other two trocar sites were left in place to release insufflation and to introduce 10 mL of 0.25% Marcaine for postoperative pain management. I then removed these trocars as well. The skin was reapproximated using 4-0 Monocryl in interrupted subcuticular stitches. Dermabond was applied to the incisions and bandages were placed over the incisions as well. Rudolph catheter was removed. Kronner uterine manipulator was removed at that point as well. The patient tolerated the procedure well and sent to recovery area in stable condition. Lap and sponge counts were correct at the end of the procedure. Instrument counts correct as well. Job ID: [id number] DocumentID: [id number] Dictated Date: 12/21/2018 12:09:37 Aerial Photogrammetrist Date: 12/21/2018 22:49:48 Dictated By: KEENA FRANCIS DO
== END 2018-12-21 14:20 | disposition home or self-care (01) ==
LOC: SDC 08:45
PROVIDERS: ATTEND Obstetrics & Gynecology
DX: N73.6 Female pelvic peritoneal adhesions (postinfective) (principal); N94.10 Unspecified dyspareunia; R51 Headache; L65.9 Nonscarring hair loss, unspecified; F17.210 Nicotine dependence, cigarettes, uncomplicated; Z88.0 Allergy status to penicillin; Z90.89 Acquired absence of other organs; Z81.8 Family history of other mental and behavioral disorders; Z80.3 Family history of malignant neoplasm of breast; Z80.8 Family history of malignant neoplasm of other organs or systems; Z80.6 Family history of leukemia
CPT/HCPCS: 36415; 84703; 85025; 86850; 86900; 86901; 87081

== ENCOUNTER 2019-01-30 08:47 | Outpatient (RCR) | payer MEDICAID ==
[~2019-01-30 08:47] MED LIST changes: +IBUP-1773 PO
== END 2019-02-13 11:01 | disposition home or self-care (01) ==
PROVIDERS: ATTEND Obstetrics & Gynecology
DX: N94.10 Unspecified dyspareunia (principal); Z98.890 Other specified postprocedural states; Z72.0 Tobacco use; Z90.49 Acquired absence of other specified parts of digestive tract

== ENCOUNTER 2020-10-10 17:05 | Emergency (ER) | payer MEDICAID ==
[~2020-10-10] VITALS: Ht 175 cm; Wt 79.0 kg
[2020-10-10 17:19] VITALS: BP 114/60
[2020-10-10] MEDS ORDERED: FAMOTIDINE 20 MG (PEPCID) TABLET PO ONE (17:30)
[2020-10-10] MEDS ORDERED: LIDOCAINE 2% VISCOUS 15 ML UDC PO ONE (17:30)
[2020-10-10] MEDS ORDERED: ANTACID SUSP 30 ML UDC (MYLANTA) PO ONE (17:30)
[2020-10-10] MEDS ORDERED: FAMO-119 PO (17:32)
--- NOTE | 2020-10-10 17:32 | ED Abdominal Pain ---
General Chief Complaint: Abdominal/GI Problems Stated Complaint: ABD/BREAST PAIN Nursing Triage Note: Pt here with abdominal pain; pt is 27 wks/ . States her OB is aware and diagnosed her with acid reflux. Sepsis Screen: No Definite Risk History of Present Illness Date Seen by Provider: October 10, 2020 Time Seen by Provider: 17:20 Initial Comments 40-year-old G3, P2 at 21 weeks presents with upper abdominal discomfort, burning, reflux, nausea and vomiting for several weeks. Recently moved to the area ([place]) from [place] and has not yet established OB care. Plans to see OB in the [facility]. Currently not taking any medication, smoking a few cigarettes daily and drinking pop and juice with decreased appetite. Denies any lower abdominal or pelvic pain, vaginal bleeding or discharge. Is any back or flank pain. Allergies and Home Medications Allergies Coded Allergies: Penicillins (Verified Allergy, Unknown, 12/18/18) Home Medications Hydrocodone Bit/Acetaminophen 1 Tab Tab, 1 TAB PO Q4H PRN for PAIN-MODERATE Prescribed by: KEENA FRANCIS on 12/21/1845 Ibuprofen 600 Mg Tablet, 600 MG PO Q6H Prescribed by: KEENA FRANCIS on 12/21/18 0945 Patient Home Medication List Home Medication List Reviewed: Yes Review of Systems Review of Systems Constitutional: No fever, No malaise, No weakness EENTM: No Symptoms Reported Respiratory: No Symptoms Reported Cardiovascular: No Symptoms Reported Gastrointestinal: See HPI, Abdominal Pain (upper); Denies Constipated, Denies Diarrhea; Nausea, Poor Appetite; Denies Poor Fluid Intake; Vomiting Genitourinary: No Symptoms Reported; Denies Burning, Denies Discharge, Denies Drainage, Denies Frequency, Denies Flank Pain, Denies Hematuria, Denies Pain Musculoskeletal: No back pain, No joint pain Skin: No change in color, No rash Past Avibqjh-Pobcdd-Weduau Hx Past Med/Social Hx: Reviewed Nursing Past Med/Soc Hx Patient Social History Alcohol Use: Denies Use Smoking Status: Current Everyday Smoker Type Used: Cigarettes 2nd Hand Smoke Exposure: Yes Recent Infectious Disease Expo: No Recent Hopitalizations: No Seasonal Allergies Seasonal Allergies: No Past Medical History Surgeries: Yes Appendectomy, Section Respiratory: No Cardiac: No Neurological: Yes Headaches /Migraines : Yes Expected Date of Delivery: Jan 14, 2021 Female Reproductive Disorders: Menstrual Problems, Ovarian Cyst Sexually Transmitted Disease: No Genitourinary: No Gastrointestinal: Yes Chronic Diarrhea Musculoskeletal: No Endocrine: No HEENT: Yes (GLASSES) Loss of Vision: Denies Hearing Impairment: Denies Cancer: No Psychosocial: No Integumentary: No Blood Disorders: No Adverse Reaction/Blood Tranf: No (N/A) Physical Exam Vital Signs Vital Signs - First Documented 10/10/20 17:19 Temp 37.1 Pulse 107 Resp 18 B/P (MAP) 114/60 (78) Pulse Ox 100 O2 Delivery Room Air Capillary Refill : Less Than 3 Seconds Height/Weight/BMI Height: 5'9.00" Weight: 160lbs. 0.0oz. 72.220236ti; 25.00 BMI Method:Stated General Appearance: WD/WN, no apparent distress Respiratory: chest non-tender, lungs clear, normal breath sounds, no respiratory distress, no accessory muscle use Cardiovascular: normal peripheral pulses, regular rate, rhythm, no edema, no gallop, no JVD, no murmur Gastrointestinal: soft, no organomegaly, no pulsatile mass; No distended, No guarding, No rebound; tenderness (epigastric); No mass, No hepatomegaly, No spleenomegaly Back: normal inspection, no CVA tenderness Neurologic/Psychiatric: alert, normal mood/affect, oriented x 3 Skin: normal color, warm/dry Progress/Results/Core Measures Results/Orders My Orders Orders - WILIAMVENSTINEGISELLE L DO Famotidine Tablet (Pepcid Tablet) (10/10/20 17:30) Antacid Suspension (Mylanta Suspension (10/10/20 17:30) Lidocaine 2% Viscous 15 Ml (Xylocaine Vi (10/10/20 17:30) Vital Signs/I&O 10/10/20 17:19 Temp 37.1 Pulse 107 Resp 18 B/P (MAP) 114/60 (78) Pulse Ox 100 O2 Delivery Room Air Blood Pressure Mean: 78 Departure Impression Primary Impression: Epigastric pain Additional Impression: Reflux esophagitis Qualified Codes: K21.00 - Gastro-esophageal reflux disease with esophagitis, without bleeding Disposition: 01 HOME, SELF-CARE Condition: Improved Departure-Patient Inst. Decision time for Depature: 17:32 Referrals: NO,LOCAL PHYSICIAN (PCP/Family) Primary Care Physician Patient Instructions: Acid Reflux (Gastroesophageal Reflux Disease) During Add. Discharge Instructions: Establish an OB for follow up care next week. Return to the ER if your symptoms get progressively worse. All discharge instructions reviewed with patient and/or family. Voiced understanding. Scripts Famotidine (Pepcid) 20 Mg Tablet 20 MG PO BID, #30 TAB Prov: GISELLE HELLER DO 10/10/20 GISELLE HELLER DO October 10, 2020 17:32
== END 2020-10-10 17:48 | disposition home or self-care (01) ==
LOC: EDUNIT# 17:05 → ER FS 17:07
DX: O99.612 Diseases of the digestive system complicating pregnancy, second trimester (principal); K21.00 Gastro-esophageal reflux disease with esophagitis, without bleeding; O99.352 Diseases of the nervous system complicating pregnancy, second trimester; G43.909 Migraine, unspecified, not intractable, without status migrainosus; O99.332 Smoking (tobacco) complicating pregnancy, second trimester; F17.210 Nicotine dependence, cigarettes, uncomplicated; Z3A.27 27 weeks gestation of pregnancy